=== PATIENT | male | born 1990 | race Caucasian/White ===

== ENCOUNTER 2016-08-03 09:13 | Emergency (ER) | payer OTHER ==
[2016-08-03 09:47] VITALS: BP 115/76; PULSE 82; TEMP 97.6; BMI 25.1
--- NOTE | 2016-08-03 10:53 | PDOC ---
History of Present Illness - General Chief Complaint: Cold Symptoms Stated Complaint: SORE THROAT Time Seen by Provider: 08/03/16 10:12 History Source: Patient Exam Limitations: No Limitations - History of Present Illness Initial Comments: 08/03/16 13:12 Chief complaint: Congestion, productive cough and subjective fever for one week History of present illness: Patient is a 26-year-old male with no significant medical history here today complaining of sore throat, nasal congestion, productive cough with greenish daily times one week. Patient also reports over the last few days. Patient denies any difficulty swallowing or breathing. Patient is afebrile presently. Patient denies any sick contacts. Patient did not have influenza vaccine. Timing/Duration: intermittent (for one week ) Severity: mild Associated Symptoms: reports: cough (productive greenish ), fever/chills, other (sore throat, nasal congestion ) Past History - Past Medical History Allergies/Adverse Reactions: Allergies Allergy/AdvReac Type Severity Reaction Status Date / Time No Known Allergies Allergy Verified 08/03/16 09:43 Home Medications: Ambulatory Orders Guaifenesin Dm [Mucinex Dm -] 1 tab PO BID PRN #10 tab.er.12h 08/03/16 Pseudoephedrine HCl [Sudafed -] 30 mg PO Q6H PRN #12 tablet 08/03/16 Other medical history: DENIES. - Psycho/Social/Smoking Cessation Hx Suicidal Ideation: No Smoking Status: No Smoking History: Never smoked Number of Cigarettes Smoked Daily: 0 Review of Systems - Review of Systems Able to Perform ROS?: Yes Constitutional: No: Symptoms Reported HEENTM: Yes: Nose Congestion, Throat Pain (less than prior ) Respiratory: Yes: Productive cough (greenish ). No: Shortness of Breath, SOB with Exertion, SOB at Rest, Stridor, Wheezing Cardiac (ROS): No: Symptoms Reported ABD/GI: No: Symptoms Reported : No: Symptoms Reported Musculoskeletal: No: Symptoms Reported Integumentary: No: Symptoms Reported Neurological: No: Symptoms reported *Physical Exam - Vital Signs Last Vital Signs Temp Pulse Resp BP Pulse Ox 97.6 F 82 19 115/76 97 08/03/16 09:43 08/03/16 09:43 08/03/16 09:43 08/03/16 09:43 08/03/16 09:43 - Physical Exam General Appearance: Yes: Appropriately Dressed HEENT: positive: TMs Normal, Pharyngeal Erythema, Nasal Congestion, Rhinorrhea ( clear ). negative: Tonsillar Exudate, Tonsillar Erythema Neck: negative: Lymphadenopathy (R), Lymphadenopathy (L) Respiratory/Chest: positive: Lungs Clear, Normal Breath Sounds. negative: Chest Tender, Respiratory Distress Cardiovascular: positive: Regular Rhythm, Regular Rate, S1, S2 Integumentary: positive: Normal Color Neurologic: positive: Alert, Normal Response, Responsive Medical Decision Making - Medical Decision Making 08/03/16 13:14 Patient is a 26-year-old male with no significant medical history here today complaining of sore throat, nasal congestion, productive cough with greenish daily times one week. Patient also reports over the last few days. Patient denies any difficulty swallowing or breathing. Patient is afebrile presently. Patient denies any sick contacts. Patient did not have influenza vaccine. Upper respiratory infection PLAN: sudafed 30 mg every 6 hrs prn nasal congestion Mucinex DM 1 tab q 12 hrs prn cough for 5 days 08/03/16 13:15 *DC/Admit/Observation/Transfer Diagnosis at time of Disposition: Upper respiratory infection, acute - Discharge Dispostion Disposition: HOME Condition at time of disposition: Stable - Prescriptions Prescriptions: Guaifenesin Dm [Mucinex Dm -] 1 tab PO BID PRN #10 tab.er.12h PRN Reason: Cough Pseudoephedrine HCl [Sudafed -] 30 mg PO Q6H PRN #12 tablet PRN Reason: Nasal Congestion - Patient Instructions Additional Instructions: Drink a lot of fluids and rest Follow up primary in a few days Return to emergency room if symptoms worsen any difficulty breathing or swallowing Patient voiced understanding of discharge instructions and all questions were answered
== END 2016-08-03 10:56 | disposition home or self-care (01) ==
LOC: JERFT 09:13
DX: J06.9 Acute upper respiratory infection, unspecified (principal)
CPT/HCPCS: 99281-25

== ENCOUNTER 2016-11-15 11:49 | Emergency (ER) | payer OTHER ==
[2016-11-15 11:54] VITALS: TEMP 98.4; BMI 25.0
[2016-11-15 13:59] LABS: BASOPHIL 0.7 % (0-2.0); EOSINOPHIL 1.7 % (0-4.5); MCH 30.6 pg (25.7-33.7); MCHC 33.9 g/dl (32.0-35.9); MEAN CELL VOLUME 90.3 fl (80-96); MEAN PLT VOLUME 9.7 fl (7.5-11.1); NEUTROPHILS 68.8 % (42.8-82.8); PLATELET COUNT 197 K/MM3 (134-434); RDW 13.7 % (11.9-15.9); WHITE BLOOD COUNT 6.4 K/mm3 (4.0-10.0)
[2016-11-15 14:05] LABS: URINE APPEARANCE CLEAR; URINE BILIRUBIN NEGATIVE (NEGATIVE); URINE BLOOD NEGATIVE (NEGATIVE); URINE COLOR YELLOW; URINE GLUCOSE (UA) NEGATIVE (NEGATIVE); URINE KETONE TRACE (NEGATIVE); URINE LEUK ESTERASE NEGATIVE (NEGATIVE); URINE NITRITE NEGATIVE (NEGATIVE); URINE PROTEIN NEGATIVE (NEGATIVE); URINE UROBILINOGEN NEGATIVE E.U./dl (0.2-1.0)
[2016-11-15 14:21] LABS: ALBUMIN 4.2 g/dl (3.4-5.0); ANION GAP 8 (8-16); CALCIUM 9.3 mg/dL (8.5-10.1); CO2 30 mmol/L (21-32); GLUCOSE,RANDOM 69 mg/dL (74-106); SGOT/AST 15 U/L (15-37); SGPT/ALT 22 U/L (12-78)
[2016-11-15 14:23] LABS: ALK PHOS 74 U/L (45-117); BILIRUBIN,TOTAL 0.5 mg/dL (0.2-1.0); TOT PROT 7.5 g/dl (6.4-8.2)
--- NOTE | 2016-11-15 14:51 | PDOC ---
History of Present Illness <Herberth Farmer - Last Filed: 11/15/16 14:58> - General History Source: Patient Exam Limitations: No Limitations - History of Present Illness Initial Comments: 11/15/16 15:21 The patient is a 26 year old male, with no significant past medical history who presents to the emergency department with right lower quadrant pain for about 2 weeks. He reports his pain is mostly positional and often made worse with heavy lifting. He reports about 3 months ago falling and landing on his right side, but denies any immediate pain since the injury. He also notes having right tesiticle swelling that started yesterday with assocaited pain that radiates from his right groin while lifting heavy objects. He also relates having pins and needles sensation that radiates down his RLE. He denies any lower back pain. He denies any recent fevers, chills, or headache. He denies any recent nausea, vomit, diarrhea or constipation. He denies any recent dysuria , frequency, urgency or hematuria. Allergies: NKA Past surgical history: None reported. Social History: Nonsmoker. Denies EtOH use and recreational drug use. 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 <Moises Craven - Last Filed: 11/15/16 15:22> - General Chief Complaint: Pain Stated Complaint: PAIN IN THE R LOWER QUADRANT Time Seen by Provider: 11/15/16 12:03 Past History - Past Medical History Other medical history: DENIES - Psycho/Social/Smoking Cessation Hx Anxiety: No Suicidal Ideation: No Smoking Status: No Smoking History: Never smoked Number of Cigarettes Smoked Daily: 0 Hx Alcohol Use: Yes (SOCIAL) Drug/Substance Use Hx: No Substance Use Type: None <Herberth Farmer - Last Filed: 11/15/16 14:58> <Moises Craven - Last Filed: 11/15/16 15:22> - Past Medical History Allergies/Adverse Reactions: Allergies Allergy/AdvReac Type Severity Reaction Status Date / Time No Known Allergies Allergy Verified 11/15/16 11:54 Home Medications: Ambulatory Orders NK [No Known Home Medication] 11/15/16 Review of Systems - Review of Systems Able to Perform ROS?: Yes Comments:: 11/15/16 15:21 CONSTITUTIONAL: No reported: Fever, Chills, Diaphoresis, Generalized Weakness, Malaise, Loss of Appetite HEENT: No reported: Rhinorrhea, Nasal Congestion, Throat Pain, Throat Swelling, Difficulty Swallowing, Mouth Swelling, Ear Pain, Eye Pain, Visual Changes CARDIOVASCULAR: No reported: Chest Pain, Syncope, Palpitations, Irregular Heart Rate, Lightheadedness, Peripheral Edema RESPIRATORY: No reported: Cough, Shortness of Breath, SOB with Exertion, Orthopnea, Wheezing , Stridor, Hemoptysis GASTROINTESTINAL: +Right lower quadrant pain/hip pain. No reported: Nausea, Vomiting, Diarrhea, Constipation, Melena, Hematochezia GENITOURINARY: No reported: Dysuria, Frequency, Urgency, Hesitancy, Flank Pain, Genital Pain MUSCULOSKELETAL: No reported: Myalgia, Arthralgia, Joint Swelling, Back pain, Neck Pain SKIN: No reported: Rash, Itching, Pallor HEMATOLOGIC/IMMUNOLOGIC: No reported: Easy Bleeding, Easy Bruising, Lymphadenopathy, Frequent infections ENDOCRINE: No reported: Unexplained Weight Gain, Unexplained Weight Loss, Heat Intolerance , Cold Intolerance NEUROLOGIC: No reported: Headache, Focal Weakness, Paresthesias, Unsteady Gait, Seizure, Mental Status Changes, Incontinence PSYCHIATRIC: No reported: Anxiety, Depression <Moises Craven - Last Filed: 11/15/16 15:22> *Physical Exam - Vital Signs Last Vital Signs Temp Pulse Resp BP Pulse Ox 98.4 F 74 20 137/70 97 11/15/16 11:51 11/15/16 11:51 11/15/16 11:51 11/15/16 11:51 11/15/16 11:51 <Herberth Farmer - Last Filed: 11/15/16 14:58> - Vital Signs Last Vital Signs Temp Pulse Resp BP Pulse Ox 98.4 F 74 20 137/70 97 11/15/16 11:51 11/15/16 11:51 11/15/16 11:51 11/15/16 11:51 11/15/16 11:51 - Physical Exam Comments: 11/15/16 15:22 GENERAL: The patient is awake, alert, and fully oriented, Nontoxic - in no acute distress. HEAD: Normocephalic, atraumatic. EYES: extraocular movements intact, sclera anicteric, conjunctiva clear. ENT: Normal voice, Moist mucous membranes. NECK: Normal range of motion, supple LUNGS: Breath sounds equal, clear to auscultation bilaterally. No wheezes, no rhonchi, no rales. : Normal Examination. No masses, tenderness, or edema. uncircumcised penis HEART: Regular rate and rhythm, without murmur, rub or gallop. ABDOMEN: Soft, nontender, normoactive bowel sounds. No guarding, no rebound.No CVA tenderness EXTREMITIES: Normal range of motion, no edema. No clubbing or cyanosis. No cords , erythema, or tenderness. NEUROLOGICAL: No facial asymmetry, Normal speech. PSYCH: Normal mood, normal affect. SKIN: Warm, Dry, normal turgor. <Moises Craven - Last Filed: 11/15/16 15:22> ED Treatment Course - LABORATORY CBC & Chemistry Diagram: 11/15/16 13:40 11/15/16 13:40 - ADDITIONAL ORDERS Additional order review: Laboratory Results 11/15/16 11/15/16 13:40 13:40 Sodium 143 Potassium 3.6 Chloride 105 Carbon Dioxide 30 Anion Gap 8 BUN 12 Creatinine 1.0 D Creat Clearance w eGFR > 60 Random Glucose 69 L D Calcium 9.3 Total Bilirubin 0.5 D AST 15 ALT 22 Alkaline Phosphatase 74 Total Protein 7.5 Albumin 4.2 Urine Color Yellow Urine Appearance Clear Urine pH 5.0 Urine Protein Negative Urine Glucose (UA) Negative Urine Ketones Trace H Urine Blood Negative Urine Nitrite Negative Urine Bilirubin Negative Urine Urobilinogen Negative Ur Leukocyte Esterase Negative 11/15/16 13:40 RBC 4.84 MCV 90.3 MCHC 33.9 RDW 13.7 MPV 9.7 Neutrophils % 68.8 Lymphocytes % 21.8 Monocytes % 7.0 Eosinophils % 1.7 D Basophils % 0.7 - RADIOLOGY Radiology Studies Ordered: Category Date Time Status SCROTUM AND CONTENTS US [US] Stat Ultrasound 11/15/16 12:25 Completed <Herberth Farmer - Last Filed: 11/15/16 14:58> - LABORATORY CBC & Chemistry Diagram: 11/15/16 13:40 11/15/16 13:40 - ADDITIONAL ORDERS Additional order review: Laboratory Results 11/15/16 11/15/16 13:40 13:40 Sodium 143 Potassium 3.6 Chloride 105 Carbon Dioxide 30 Anion Gap 8 BUN 12 Creatinine 1.0 D Creat Clearance w eGFR > 60 Random Glucose 69 L D Calcium 9.3 Total Bilirubin 0.5 D AST 15 ALT 22 Alkaline Phosphatase 74 Total Protein 7.5 Albumin 4.2 Urine Color Yellow Urine Appearance Clear Urine pH 5.0 Urine Protein Negative Urine Glucose (UA) Negative Urine Ketones Trace H Urine Blood Negative Urine Nitrite Negative Urine Bilirubin Negative Urine Urobilinogen Negative Ur Leukocyte Esterase Negative 11/15/16 13:40 RBC 4.84 MCV 90.3 MCHC 33.9 RDW 13.7 MPV 9.7 Neutrophils % 68.8 Lymphocytes % 21.8 Monocytes % 7.0 Eosinophils % 1.7 D Basophils % 0.7 <Moises Craven - Last Filed: 11/15/16 15:22> Medical Decision Making - Medical Decision Making 11/15/16 14:49 26y M presenting with 2 weeks of intermittent RLQ,pain worse when he is lifting w/o fever/chills, n/v, diarrhea, dysuria. pt does note the pt radiates down to his groin occasionally. on exam pt is well apeparing NAD, no focal tenderness, normal testicular exam likely msk as it is worse with heavy lifting, exa otherwise unremarkable labs unremraakble UA shows trace ktones - no signs of dka/hyperglycemia, likely due to starvation as pt has not eaten no blood to suggest kidney stone US negative for torsion abd was reasssed and there is no tenderness do not suspect appendicits return precautions were discussed will [facility] pt with pmd fu I discussed the physical exam findings, ancillary test results and final diagnoses with the patient. I answered all of the patient's questions. The patient was satisfied with the care received and felt comfortable with the discharge plan and treatment plan. The patient will call their primary care physician within 24 hours to arrange follow-up and will return to the Emergency Department with any new, persistent or worsening symptoms. A portion of this note was documented by scribe services under my direction. I have reviewed the details of the note, within reason, and agree with the documentation with the following case summary and management plan written by me <Herberth Farmer - Last Filed: 11/15/16 14:58> *DC/Admit/Observation/Transfer - Discharge Dispostion Admit: No <Herberth Farmer - Last Filed: 11/15/16 14:58> - Attestations Scribe Attestion: 11/15/16 15:22 Documentation prepared by Moises Craven, acting as medical sales associate for Herberth Farmer MD. <Moises Craven - Last Filed: 11/15/16 15:22> Diagnosis at time of Disposition: Hip pain Qualifiers: Laterality: right Qualified Code(s): M25.551 - Pain in right hip - Discharge Dispostion Disposition: HOME Condition at time of disposition: Improved - Referrals Referrals: [facility] [Provider Group] - Patient Instructions Printed Discharge Instructions: DI for Abdominal Pain-Adult Additional Instructions: Vuelva al departamento de urgencias de inmediato con cualquier nuevo, persistente o empeorando los sntomas, incluyendo dolor abdominal empeorando, fiebres, incapacidad para tolerar la ingesta oral, dolor en el pecho, dificultad para respirar o cualquier otra preocupacin. Mantngase sandor hidratado. Debe llamar y seguir con jerry mdico maana. Jerry visita al departamento de emergencias no est completa sin un seguimiento con jerry mdico para jerry reevaluaci n. Por favor, asegrese de que jerry mdico revise los resultados de jerry evaluaci n de emergencia. Return to the emergency department immediately with ANY new, persistent or worsening symptoms including worsening abdominal pain, fevers, inability to tolerate oral intake, chest pain, shortness of breath or any other concerns. Stay well hydrated. You MUST call and follow up with your doctor tomorrow. Your emergency department visit is not complete without a followup with your doctor for reevaluation. Please make sure your doctor reviews the results of your emergency evaluation. Print Language: TANZANIAN
[2016-11-15 15:25] VITALS: BP 132/72; PULSE 55
== END 2016-11-15 15:24 | disposition home or self-care (01) ==
LOC: JER 11:49
DX: M25.551 Pain in right hip (principal)
CPT/HCPCS: 36415; 76870-TC; 80053; 81003; 85025; 99282-25

== ENCOUNTER 2017-08-02 11:07 | Emergency (ER) | payer SELFPAY ==
[2017-08-02 11:19] VITALS: BP 131/69; PULSE 74; TEMP 98.6; BMI 22.7
--- NOTE | 2017-08-02 11:40 | PDOC ---
History of Present Illness - General Chief Complaint: Sore Throat Stated Complaint: NECK PROBLEM Time Seen by Provider: 08/02/17 11:33 History Source: Patient Exam Limitations: No Limitations - History of Present Illness Initial Comments: 08/02/17 12:09 Patient is a 27-year-old male with no past medical history who presents emergency department today with 2 days of neck swelling. Patient states that he has a bump on the right side of his neck. It is painful. Denies fevers, chills, sore throat, cough, nausea, vomiting and diarrhea. Patient states this has happened before in the swelling usually goes away on its own. Past History - Travel Traveled outside of the country in the last 30 days: No Close contact w/someone who was outside of country & ill: No - Past Medical History Allergies/Adverse Reactions: Allergies Allergy/AdvReac Type Severity Reaction Status Date / Time No Known Allergies Allergy Verified 08/02/17 11:15 Home Medications: Ambulatory Orders Amoxicillin - [Amoxicillin 500mg Capsule -] 500 mg PO BID #14 capsule 08/02/17 COPD: No - Immunization History Immunization Up to Date: Yes - Suicide/Smoking/Psychosocial Hx Smoking Status: No Smoking History: Never smoked Number of Cigarettes Smoked Daily: 0 Hx Alcohol Use: No Drug/Substance Use Hx: No Substance Use Type: None Review of Systems - Review of Systems Able to Perform ROS?: Yes Comments:: 08/02/17 11:40 CONSTITUTIONAL: Absent: fever, chills, diaphoresis, generalized weakness, malaise, loss of appetite HEENT: Absent: rhinorrhea, nasal congestion, throat pain, throat swelling, difficulty swallowing, mouth swelling, ear pain, eye pain, visual Changes CARDIOVASCULAR: Absent: chest pain, loss of consciousness, palpitations, irregular heart rate, peripheral edema RESPIRATORY: Absent: cough, shortness of breath, dyspnea with exertion, orthopnea, wheezing, stridor, hemoptysis GASTROINTESTINAL: Absent: abdominal pain, abdominal distension, nausea, vomiting, diarrhea, constipation, melena, hematochezia SKIN: Absent: rash, itching, pallor HEMATOLOGIC/IMMUNOLOGIC: Present: R neck LAD. Absent: easy bleeding, easy bruising, frequent infections ENDOCRINE: Absent: unexplained weight gain, unexplained weight loss, heat intolerance, cold intolerance NEUROLOGIC: Absent: headache, focal weakness or paresthesias, dizziness, unsteady gait, seizure, mental status changes, bladder or bowel incontinence Is the patient limited Montserratian proficient: No *Physical Exam - Vital Signs Last Vital Signs Temp Pulse Resp BP Pulse Ox 98.6 F 74 18 131/69 96 08/02/17 11:16 08/02/17 11:16 08/02/17 11:16 08/02/17 11:16 08/02/17 11:16 - Physical Exam Comments: 08/02/17 11:40 GENERAL: Well developed, well nourished. Awake and alert. No acute distress. HEENT: Normocephalic, atraumatic. PERRLA, EOMI. No conjunctival pallor. Sclera are non- icteric. Moist mucous membranes. Oropharynx is clear. NECK: 3cm R mobile anterior cervical node just under the angle of the mandible. Tender to touch. Supple. Full ROM. No JVD. Carotid pulses 2+ and symmetric, without bruits. No thyromegaly. CARDIOVASCULAR: Regular rate and rhythm. No murmurs, rubs, or gallops. Distal pulses are 2+ and symmetric. PULMONARY: No evidence of respiratory distress. Lungs clear to auscultation bilaterally. No wheezing, rales or rhonchi. SKIN: Warm and dry. Normal capillary refill. No rashes. No jaundice. NEUROLOGICAL: Alert, awake, appropriate. Cranial nerves 2-12 intact. No deficits to light touch and temperature in face, upper extremities and lower extremities. No motor deficits in the in face, upper extremities and lower extremities. Normoreflexic in the upper and lower extremities. Normal speech. Toes are down- going bilaterally. Gait is normal without ataxia. PSYCHIATRIC: Cooperative. Good eye contact. Appropriate mood and affect. ED Treatment Course - LABORATORY CBC & Chemistry Diagram: 08/02/17 12:00 08/02/17 12:00 Medical Decision Making - Medical Decision Making 08/02/17 12:12 Patient is a 27-year-old male with no past medical history who presents to the ER with 2 days of swollen lymph node on the right. Patient is currently afebrile , vital signs stable. Tender to touch. Will rule out strep at this time and we' ll obtain basic labs. Motrin for pain. Reevaluate. 08/02/17 12:46 Lab work is unremarkable at this time. Strep test is negative. However given the size of the lymph node we will treat empirically for strep. Amoxicillin prescribed. Follow up for primary care doctor given. Instructed patient to make appointment with the doctor for further follow-up. Patient understands all discharge instructions and all questions were answered. Return precautions given. *DC/Admit/Observation/Transfer Diagnosis at time of Disposition: Lymphadenopathy - Discharge Dispostion Disposition: HOME Condition at time of disposition: Stable Admit: No - Referrals Referrals: Skyler Sinha MD [Staff Physician] - Basilio Bullock MD [Staff Physician] - - Patient Instructions Printed Discharge Instructions: DI for Lymphadenopathy Additional Instructions: Your blood work today was normal. Your strep test was negative. However given the swollen glands on your neck your prescribed amoxicillin. Please take the medication twice a day for the next 7 days. You may use warm compresses on the area to help with pain. He may also take Motrin 800 mg every 8 hours to help with pain and swelling. A referral for a primary care doctor was given to you please follow-up with them within the next 1-2 days. Return to the emergency department if the swelling gets worse, if you have difficulty swallowing, if you develop fevers, or if you have any changes in your symptoms. Tu anlisis de sean hoy fue normal. Tu prueba de estreptococo fue negativa. Sin embargo, dado las glndulas hinchadas en jerry cassandra jerry amoxicilina prescrita. Por favor tome el medicamento dos veces al da cristopher los prximos 7 sanchez. Puede usar compresas tibias en el polly para ayudar con el dolor. Tambi n puede jordon Motrin 800 mg cada 8 horas para aliviar el dolor y la hinchazn. Se le proporcion manisha referencia para un mdico de atencin primaria por favor harish seguimiento con ellos dentro de los prximos 1 a 2 sanchez. Regrese al departamento de emergencias si la inflamacin empeora, si tiene dificultades para tragar, si tiene fiebre o si tiene algn cambio en cesar sntomas. Print Language: FRENCH - Post Discharge Activity Forms/Work/School Notes: Back to Work
[2017-08-02] MEDS ORDERED: IBUPROFEN 400 MG TABLET (FP) PO ONE ×2 (11:55→12:08)
[2017-08-02 12:14] LABS: EOS % 0.7 % (0-4.5); HEMATOCRIT 44.1 % (35.4-49); HEMOGLOBIN 15.2 GM/dL (11.7-16.9); LYMPH % 14.5 % (8-40); MCH 30.9 pg (25.7-33.7); MCHC 34.5 g/dl (32.0-35.9); MEAN CELL VOLUME 89.6 fl (80-96); MEAN PLT VOLUME 9.2 fl (7.5-11.1); NEUT % 73.8 % (42.8-82.8); PLATELET COUNT 188 K/MM3 (134-434); RBC 4.92 M/mm3 (4.00-5.60); RDW 13.2 % (11.9-15.9); WHITE BLOOD COUNT 5.8 K/mm3 (4.0-10.0)
[2017-08-02 12:40] LABS: ALBUMIN 4.1 g/dl (3.4-5.0); ANION GAP 8 (8-16); BILIRUBIN,TOTAL 0.6 mg/dL (0.2-1.0); BLOOD UREA NITROGEN 13 mg/dL (7-18); CALCIUM 9.3 mg/dL (8.5-10.1); CHLORIDE 104 mmol/L (98-107); CO2 29 mmol/L (21-32); CREATININE 0.9 mg/dL (0.7-1.3); GLUCOSE,RANDOM 104 mg/dL (74-106); POTASSIUM 3.8 mmol/L (3.5-5.1); SGOT/AST 17 U/L (15-37); SGPT/ALT 23 U/L (12-78); SODIUM 141 mmol/L (136-145); TOT PROT 7.4 g/dl (6.4-8.2)
[2017-08-02 12:41] LABS: ALK PHOS 80 U/L (45-117)
== END 2017-08-02 12:56 | disposition home or self-care (01) ==
LOC: JERFT 11:07
DX: R59.1 Generalized enlarged lymph nodes (principal)
CPT/HCPCS: 36415; 80053; 85025; 87070; 87430; 99281-25

== ENCOUNTER 2018-04-08 18:07 | Emergency (ER) | payer OTHER ==
[2018-04-08 18:47] VITALS: BP 134/70; PULSE 64; TEMP 98.5; BMI 25.8
--- NOTE | 2018-04-08 18:47 | PDOC ---
Rapid Medical Evaluation Chief Complaint: Back Pain Time Seen by Provider: 04/08/18 18:44 Medical Evaluation: Allergies Allergy/AdvReac Type Severity Reaction Status Date / Time No Known Allergies Allergy Verified 04/08/18 18:43 04/08/18 18:45 I have performed a brief in-person evaluation of this patient. The patient presents with a chief complaint of: c/o right low abd to back pain x 1 week. 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 No fevers/ No px with bowels/ bladder Pertinent physical exam findings: abd soft/ no guarding, rebound I have ordered the following: nothing The patient will proceed to the ED for further evaluation.
--- NOTE | 2018-04-08 18:57 | PDOC ---
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 Pt states he felt a pulling to his right lower back and his right side abdomen when lifting heavy materials. Pt states pain radiates to his right buttock and posterior thigh worse with walking and raising left leg. no urine or bowel dysfunction. 04/08/18 19:16 Occurred: reports: last week Severity: reports: moderate Pain Location: reports: back Past History - Past Medical History Allergies/Adverse Reactions: Allergies Allergy/AdvReac Type Severity Reaction Status Date / Time No Known Allergies Allergy Verified 04/08/18 18:43 Home Medications: Ambulatory Orders Cyclobenzaprine HCl [Flexeril -] 10 mg PO TID PRN #15 tablet 04/08/18 Naproxen [Naprosyn -] 500 mg PO BID #14 tablet 04/08/18 COPD: No - Immunization History Immunization Up to Date: Yes - Suicide/Smoking/Psychosocial Hx Smoking Status: No Smoking History: Never smoked Number of Cigarettes Smoked Daily: 0 Hx Alcohol Use: No Drug/Substance Use Hx: No Substance Use Type: None Review of Systems - Review of Systems Able to Perform ROS?: Yes Is the patient limited Icelandic proficient: No Constitutional: No: Symptoms Reported HEENTM: No: Symptoms Reported Respiratory: No: Symptoms reported Cardiac (ROS): No: Symptoms Reported ABD/GI: No: Symptoms Reported : No: Symptoms Reported Musculoskeletal: Yes: Symptoms Reported Integumentary: No: Symptoms Reported *Physical Exam - Vital Signs Last Vital Signs Temp Pulse Resp BP Pulse Ox 98.5 F 64 16 134/70 99 04/08/18 18:44 04/08/18 18:44 04/08/18 18:44 04/08/18 18:44 04/08/18 18:44 - Physical Exam General Appearance: Yes: Nourished, Appropriately Dressed HEENT: positive: EOMI, JANKI Neck: positive: Supple. negative: Tender Respiratory/Chest: positive: Lungs Clear, Normal Breath Sounds. negative: Chest Tender Cardiovascular: positive: Regular Rhythm, Regular Rate Gastrointestinal/Abdominal: positive: Normal Bowel Sounds, Soft. negative: Tender, Distended, Guarding, Rebound, Tenderness, Hernia, Mass Male Genitalia: positive: normal genitalia. negative: discharge, testicular tenderness, testicular mass, epididymus tender, hernia Lymphatic: negative: Adenopathy Musculoskeletal: positive: Normal Inspection, Other (pos SLR right at 45 degrees , tender to deep palpation right buttock ). negative: CVA Tenderness, CVA Tenderness (R), CVA Tenderness (L), Decreased Range of Motion, Muscle Spasm, Vertebral Tenderness Extremity: positive: Normal Capillary Refill, Normal Inspection, Normal Range of Motion. 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 NML intact, Fully Oriented, Alert, Normal Mood/ Affect, Normal Response, Motor Strength 09/29 Medical Decision Making - Medical Decision Making 04/08/18 19:17 cc: right sided back to buttock pain radiates to the thigh and butt no urine or bowel dysfunction, neg saddle anesthesia no abd pain neg nvd, pt has no RLQ tenderness positive SLR will give toradol now 04/08/18 19:34 pt ambulatory steady gait given dc inst to follow up with the neurosurgeon , return to ER for any worsening pain *DC/Admit/Observation/Transfer Diagnosis at time of Disposition: Sciatica Qualifiers: Laterality: right Qualified Code(s): M54.31 - Sciatica, right side - Discharge Dispostion Disposition: HOME Condition at time of disposition: Good - Prescriptions Prescriptions: Cyclobenzaprine HCl [Flexeril -] 10 mg PO TID PRN #15 tablet PRN Reason: Muscle Spasms Naproxen [Naprosyn -] 500 mg PO BID #14 tablet - Referrals - Patient Instructions Printed Discharge Instructions: DI for Back Pain With Sciatica Additional Instructions: take the medication as prescribed DO NOT WORK AND TAKE FLEXERIL IT CAN MAKE YOU DROWSY follow with the back doctor if pain does not improve or worsens - Post Discharge Activity
[2018-04-08] MEDS ORDERED: KETOROLAC TROMETHAMINE 60 MG/2 ML VIAL IM ONE (19:07)
[2018-04-08] MEDS ORDERED: KETOROLAC TROMETHAMINE 60 MG/2 ML VIAL ONE (19:10)
== END 2018-04-08 19:45 | disposition home or self-care (01) ==
LOC: JERFT 18:07
PROC: 3E0233Z Introduction of Anti-inflammatory into Muscle, Percutaneous Approach (ICD-10-PCS; principal; 2018-04-08)
DX: M54.41 Lumbago with sciatica, right side (principal); X50.0XXA Overexertion from strenuous movement or load, initial encounter; Y93.H3 Activity, building and construction; Y92.61 Building [any] under construction as the place of occurrence of the external cause
CPT/HCPCS: 96372; 99281-25

== ENCOUNTER 2018-05-16 18:59 | Emergency (ER) | payer OTHER ==
[2018-05-16 19:39] VITALS: BP 142/71; PULSE 68; TEMP 98.2; BMI 25.9
--- NOTE | 2018-05-16 19:39 | PDOC ---
Rapid Medical Evaluation Chief Complaint: Pain Medical Evaluation: Allergies Allergy/AdvReac Type Severity Reaction Status Date / Time No Known Allergies Allergy Verified 05/16/18 19:35 I have performed a brief in-person evaluation of this patient. The patient presents with a chief complaint of: Concern for swelling along R occiput after having mechanical fall around 1 week ago (slipped at work and fell backwards). Denies LOC, n/v, visual changes, numbness/tingling/weakness of extremities. Has no CROSS or neck pain but states it hurts when he presses back of head Pertinent physical exam findings: Minimal swelling to R parietal region of head ; no laceration or open wound; no gross focal deficits The patient will proceed to the ED for further evaluation. 05/16/18 19:36
--- NOTE | 2018-05-16 20:01 | PDOC ---
History of Present Illness - General Chief Complaint: Pain Stated Complaint: HEAD PAIN Time Seen by Provider: 05/16/18 19:39 History Source: Patient Exam Limitations: No Limitations - History of Present Illness Initial Comments: Patient is a 28 YO male who states that he hit the right occipital region of his head while at work approximately 2 weeks ago. There was no loss of consciousness. Patient admits to mild tenderness in this area. Patient denies laceration. Patient denies headache or visual disturbances. He states his pain is 2/10. Patient denies aggravating or relieving factors. 05/16/18 19:58 Past History - Travel Traveled outside of the country in the last 30 days: No Close contact w/someone who was outside of country & ill: No - Past Medical History Allergies/Adverse Reactions: Allergies Allergy/AdvReac Type Severity Reaction Status Date / Time No Known Allergies Allergy Verified 05/16/18 19:35 Home Medications: Ambulatory Orders NK [No Known Home Medication] 05/16/18 COPD: No - Immunization History Immunization Up to Date: Yes - Suicide/Smoking/Psychosocial Hx Smoking Status: No Smoking History: Never smoked Have you smoked in the past 12 months: No Number of Cigarettes Smoked Daily: 0 Information on smoking cessation initiated: No Hx Alcohol Use: No Drug/Substance Use Hx: No Substance Use Type: None Review of Systems - Review of Systems Able to Perform ROS?: Yes HEENTM: No: Blurred Vision, Double Vision All Other Systems: Reviewed and Negative *Physical Exam - Vital Signs Last Vital Signs Temp Pulse Resp BP Pulse Ox 98.2 F 68 18 142/71 98 05/16/18 19:36 05/16/18 19:36 05/16/18 19:36 05/16/18 19:36 05/16/18 19:36 - Physical Exam Comments: Constitutional: VS stated, pt appears in no apparent distress; sitting in chair. Skin: Warm and dry. Intact, no lesions or excoriations. Head: Normocephalic; atraumatic Eyes: Extraocular movements intact, PERRL, conjunctiva pink without injection or discharge. Lids normal; no periorbital edema or erythema. Vision subjectively normal or at baseline. Ears: No tenderness present. Canals without injection or discharge; TM clear, no retractions or bulging. Nose: Patent, mucosa pink. No drainage.Throat: Oropharynx with pink and moist mucosa. Dentition good. No pharyngeal edema; erythema or exudate. Tongue normal , no fasciculations. Airway Patent. Hypoglossal area is soft. Uvula is midline. No trismus. Neck: Supple, non-tender, with full ROM, trachea midline, no anterior/posterior cervical chain lymphadenopathy, thyroid nonpalpable. No stridor or bruits. Lungs: Bilateral breath sounds clear upon auscultation. No adventitious breath sounds. Heart: Regular rate and rhythm, S1/S2 auscultated. No murmurs, rubs, or gallops. No visible pulsations, heaves, or lifts on precordium. Musculoskeletal: Moves all extremities without difficulty. Neurologic: Awake, alert. Conversation fluent. Normal attention. Oriented to person, place, and time. Cranial nerves 1-12 intact. Gross sensory and motor strength intact; cerebellar function normal. Steady gait noted, deep tendon reflexes within normal range. 05/16/18 19:59 Moderate Sedation - Procedure Monitoring Vital Signs: Procedure Monitoring Vital Signs Temperature 98.2 F 05/16/18 19:36 Pulse Rate 68 05/16/18 19:36 Respiratory Rate 18 05/16/18 19:36 Blood Pressure 142/71 05/16/18 19:36 O2 Sat by Pulse Oximetry (%) 98 05/16/18 19:36 Medical Decision Making - Medical Decision Making 05/16/18 20:00 Pt has no red flag signs warranting a head CT. Pt has not lac *DC/Admit/Observation/Transfer Diagnosis at time of Disposition: Head injury Qualifiers: Encounter type: initial encounter Qualified Code(s): S09.90XA - Unspecified injury of head, initial encounter - Discharge Dispostion Disposition: HOME Condition at time of disposition: Stable Decision to Admit order: No - Referrals - Patient Instructions Additional Instructions: Ibuprofen 600 mg every 6 hours for pain. F/U with your PCP - Post Discharge Activity
== END 2018-05-16 20:04 | disposition home or self-care (01) ==
LOC: JERFT 18:59
DX: S09.8XXA Other specified injuries of head, initial encounter (principal); W01.0XXA Fall on same level from slipping, tripping and stumbling without subsequent striking against object, initial encounter; Y93.89 Activity, other specified; Y92.89 Other specified places as the place of occurrence of the external cause; Y99.0 Civilian activity done for income or pay
CPT/HCPCS: 99281-25

== ENCOUNTER 2018-07-06 13:45 | Emergency (ER) | payer OTHER ==
[2018-07-06 13:50] VITALS: BMI 25.8
--- NOTE | 2018-07-06 15:03 | PDOC ---
History of Present Illness <Romelia Lazo - Last Filed: 07/06/18 15:03> - General History Source: Patient Exam Limitations: No Limitations - History of Present Illness Initial Comments: 07/06/18 16:56 The patient is a 28 year old male with no significant PMH who presents to the emergency department with right lower quadrant pain for the past week. Patient reports the right lower quadrant pain worsens with heavy lifting at work. Patient has also noticed the right lower quadrant pain radiates to the right lower back but denies any associated symptoms. Patient denies similar symptoms in the past. Patient has also been complaining of intermittent right testicular swelling and pain. The patient denies chest pain, shortness of breath, headache and dizziness. Denies fever, chills, nausea, vomit, diarrhea and constipation. Denies dysuria, frequency, urgency and hematuria. Allergies: NKA Past surgical history: None reported. Social history: No reported alcohol, drug or cigarette use. <Cindy Brown - Last Filed: 07/06/18 16:59> - General Chief Complaint: Pain Stated Complaint: RIGHT LOWER ABD PAIN Time Seen by Provider: 07/06/18 14:37 Past History - Past Medical History Cancer: No COPD: No GI Disorders: No Disorders: No - Surgical History Cholecystectomy: No Gastric Stapling: No GI Surgery: No - Immunization History Immunization Up to Date: Yes - Suicide/Smoking/Psychosocial Hx Smoking Status: No Smoking History: Never smoked Have you smoked in the past 12 months: No Number of Cigarettes Smoked Daily: 0 Information on smoking cessation initiated: No Hx Alcohol Use: Yes ("social") Drug/Substance Use Hx: No Substance Use Type: None <Romelia Lazo - Last Filed: 07/06/18 15:03> <Cindy Brown - Last Filed: 07/06/18 16:59> - Past Medical History Allergies/Adverse Reactions: Allergies Allergy/AdvReac Type Severity Reaction Status Date / Time No Known Allergies Allergy Verified 05/16/18 19:35 Home Medications: Ambulatory Orders NK [No Known Home Medication] 05/16/18 Review of Systems - Review of Systems Able to Perform ROS?: Yes Comments:: 07/06/18 16:57 ADULT ROS GENERAL/CONSTITUTIONAL: No fever or chills. No weakness. HEAD, EYES, EARS, NOSE AND THROAT: No change in vision. No ear pain or discharge. No sore throat. CARDIOVASCULAR: No chest pain or shortness of breath. RESPIRATORY: No cough, wheezing, or hemoptysis. GASTROINTESTINAL: No nausea, vomiting, diarrhea or constipation. (+) right lower quadrant pain. GENITOURINARY: No dysuria, frequency, or change in urination. (+) Right testicular pain and swelling. MUSCULOSKELETAL: No joint or muscle swelling or pain. No neck or back pain. SKIN: No rash NEUROLOGIC: No headache, vertigo, loss of consciousness, or change in strength/ sensation. ENDOCRINE: No increased thirst. No abnormal weight change. HEMATOLOGIC/LYMPHATIC: No anemia, easy bleeding, or history of blood clots. ALLERGIC/IMMUNOLOGIC: No hives or skin allergy. <Cindy Brown - Last Filed: 07/06/18 16:59> *Physical Exam - Vital Signs Last Vital Signs Temp Pulse Resp BP Pulse Ox 97.4 F L 66 20 129/73 100 07/06/18 13:47 07/06/18 13:47 07/06/18 13:47 07/06/18 13:47 07/06/18 13:47 <Romelia Lazo - Last Filed: 07/06/18 15:03> - Vital Signs Last Vital Signs Temp Pulse Resp BP Pulse Ox 97.4 F L 66 20 129/73 100 07/06/18 13:47 07/06/18 13:47 07/06/18 13:47 07/06/18 13:47 07/06/18 13:47 <Cindy Brown - Last Filed: 07/06/18 16:59> Moderate Sedation - Procedure Monitoring Vital Signs: Procedure Monitoring Vital Signs Temperature 97.4 F L 07/06/18 13:47 Pulse Rate 66 07/06/18 13:47 Respiratory Rate 20 07/06/18 13:47 Blood Pressure 129/73 07/06/18 13:47 O2 Sat by Pulse Oximetry (%) 100 07/06/18 13:47 <Romelia Lazo - Last Filed: 07/06/18 15:03> - Procedure Monitoring Vital Signs: Procedure Monitoring Vital Signs Temperature 97.4 F L 07/06/18 13:47 Pulse Rate 66 07/06/18 13:47 Respiratory Rate 20 07/06/18 13:47 Blood Pressure 129/73 07/06/18 13:47 O2 Sat by Pulse Oximetry (%) 100 07/06/18 13:47 <Cindy Brown - Last Filed: 07/06/18 16:59> ED Treatment Course - ADDITIONAL ORDERS Additional order review: Laboratory Results 07/06/18 15:33 Urine Color Yellow Urine Appearance Clear Urine pH 5.0 Ur Specific [place] 1.030 Urine Protein Negative Urine Glucose (UA) Negative Urine Ketones Negative Urine Blood Negative Urine Nitrite Negative Urine Bilirubin Negative Urine Urobilinogen Negative Ur Leukocyte Esterase Negative <Cindy Brown - Last Filed: 07/06/18 16:59>
[2018-07-06 15:37] LABS: URINE APPEARANCE CLEAR; URINE BILIRUBIN NEGATIVE (<2.0 mg/dL); URINE COLOR YELLOW; URINE GLUCOSE (UA) NEGATIVE (NEGATIVE); URINE KETONE NEGATIVE (NEGATIVE); URINE LEUK ESTERASE NEGATIVE (NEGATIVE); URINE NITRITE NEGATIVE (NEGATIVE); URINE PROTEIN NEGATIVE (NEGATIVE); URINE UROBILINOGEN NEGATIVE mg/dL (0.2-1.0)
--- NOTE | 2018-07-06 16:59 | PDOC ---
*Physical Exam - Vital Signs Last Vital Signs Temp Pulse Resp BP Pulse Ox 97.4 F L 66 20 129/73 100 07/06/18 13:47 07/06/18 13:47 07/06/18 13:47 07/06/18 13:47 07/06/18 13:47 ED Treatment Course - ADDITIONAL ORDERS Additional order review: Laboratory Results 07/06/18 15:33 Urine Color Yellow Urine Appearance Clear Urine pH 5.0 Ur Specific [place] 1.030 Urine Protein Negative Urine Glucose (UA) Negative Urine Ketones Negative Urine Blood Negative Urine Nitrite Negative Urine Bilirubin Negative Urine Urobilinogen Negative Ur Leukocyte Esterase Negative Medical Decision Making - Medical Decision Making 07/06/18 16:58 28y M no pmhx presents with intermittent R hip pain and R buttock pain, associated with heavy lifting/movement. 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 Notes that the buttock pain has been going on for approximately 1 year his right hip pain has been going on about a week. He denies any recent trauma or injuries. The patient is UA is negative the patient's ultrasound is negative, awaiting CT of the abdomen 07/06/18 18:[address] of abdomen is negative for acute pathology there was a solitary pulmonary calcification noted I discussed this with the patient and the importance of following up with a primary care doctor to reevaluate this in the future. I suspect that the patient's symptoms are muscular, will recommend supportive care, including NSAIDs and heat and rest. I discussed the physical exam findings, ancillary test results and final diagnoses with the patient. I answered all of the patient's questions. The patient was satisfied with the care received and felt comfortable with the discharge plan and treatment plan. The patient will call their primary care physician within 24 hours to arrange follow-up and will return to the Emergency Department with any new, persistent or worsening symptoms. *DC/Admit/Observation/Transfer Diagnosis at time of Disposition: Muscular pain - Discharge Dispostion Disposition: HOME Condition at time of disposition: Improved Decision to Admit order: No - Referrals Referrals: [facility] [place] [Provider Group] - Patient Instructions Printed Discharge Instructions: DI for Muscle Strain Additional Instructions: Regrese al departamento de emergencias inmediatamente con CUALQUIER sntoma nuevo, persistente o que empeore, incluyendo entumecimiento, hormigueo, debilidad, fiebre o cualquier otra inquietud. Si ve manisha masa / bulto en la demetria cuando est haciendo un trabajo pesado, puede ser manisha hernia. Si es muy doloroso y no desaparece o tiene vmitos, regrese inmediatamente al Departamento de Emergencias. [place] ibuprofeno (400 mg) / tylenol (650 mg) cada 6 horas cristopher 2 sanchez. Aplica calor a tus msculos adoloridos. Haba un ndulo en tu pulmn derecho. Por favor harish un seguimiento con jerry mdico para manisha reevaluacin en 3 meses. DEBE llamar y hacer un seguimiento con jerry mdico en 3 a 4 sanchez para manisha evaluacin adicional de cesar sntomas. Jerry visita al departamento de emergencias no est completa sin un seguimiento con jerry mdico para jerry reevaluacin. Los resultados se analizaron con usted. Asegrese de que jerry mdico revise los resultados de jerry evaluacin de emergencia. Return to the emergency department immediately with ANY new, persistent or worsening symptoms including numbness, tingling, weakness, fevers or any other concerns. If you see a mass/bump in your groin when you are doing heavy lifting, it may be a hernia. If it is very painful and doesnt go away or you have vomiting, return to the Emergency Department immediately. Take ibuprofen (400mg)/tylenol(650mg) every 6 hours for 2 days. Apply heat to your sore muscles. There was a nodule in your right lung. Please follow up with your doctor for reevaluation in 3 months. You MUST call and follow up with your doctor in 3-4 days for further evaluation of your symptoms. Your emergency department visit is not complete without a followup with your doctor for reevaluation.. Results were discussed with you. Please make sure your doctor reviews the results of your emergency evaluation. Print Language: KYRGYZ - Post Discharge Activity
[2018-07-06 17:47] VITALS: BP 122/68; PULSE 69; TEMP 98.3
[2018-07-06] MEDS ORDERED: IBUPROFEN 400 MG TABLET (FP) PO ONE ×2 (18:19→18:25)
== END 2018-07-06 18:29 | disposition home or self-care (01) ==
LOC: JER 13:45
DX: M54.5 Low back pain (principal); M25.551 Pain in right hip
CPT/HCPCS: 74176; 76870-TC; 81003; 99282-25

== ENCOUNTER 2018-11-25 18:39 | Emergency (ER) | payer OTHER ==
[2018-11-25 18:49] VITALS: BP 125/66; PULSE 78; TEMP 98.8; BMI 26.6
--- NOTE | 2018-11-25 18:49 | PDOC ---
Rapid Medical Evaluation Time Seen by Provider: 11/25/18 18:44 Medical Evaluation: Allergies Allergy/AdvReac Type Severity Reaction Status Date / Time No Known Allergies Allergy Verified 05/16/18 19:35 11/25/18 18:45 I have performed a brief in-person evaluation of this patient. The patient presents with a chief complaint of: headache x 6mos. had eval with CTHead that was clear. States has no pain , but feels has some pain. Denies neuro changes, no AMS. No fevers. Pertinent physical exam findings: A&Ox3 , no I have ordered the following: nothing The patient will proceed to the ED for further evaluation. Discharge Disposition - Diagnosis Hx of head injury - Referrals - Patient Instructions - Post Discharge Activity
[2018-11-25] MEDS ORDERED: ACETAMINOPHEN 325 MG TABLET (FP) PO ONE (19:20)
[2018-11-25] MEDS ORDERED: ACETAMINOPHEN 325 MG TABLET (FP) ONE (19:24)
--- NOTE | 2018-11-25 19:30 | PDOC ---
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) Exam Limitations: No Limitations - History of Present Illness Associated Symptoms: reports: denies symptoms, fatigue, fever/chills, loss of consciousness, nausea/vomiting, numbness in legs/feet, tingling in legs/feet, vision changes, weakness Past History - Travel Traveled outside of the country in the last 30 days: No Close contact w/someone who was outside of country & ill: No - Past Medical History Allergies/Adverse Reactions: Allergies Allergy/AdvReac Type Severity Reaction Status Date / Time No Known Allergies Allergy Verified 05/16/18 19:35 Home Medications: Ambulatory Orders NK [No Known Home Medication] 05/16/18 Cancer: No COPD: No GI Disorders: No Disorders: No - Surgical History Cholecystectomy: No Gastric Stapling: No GI Surgery: No - Immunization History Immunization Up to Date: Yes - Suicide/Smoking/Psychosocial Hx Smoking Status: No Smoking History: Never smoked Have you smoked in the past 12 months: No Number of Cigarettes Smoked Daily: 0 Hx Alcohol Use: Yes (OCCASIONALLY) Drug/Substance Use Hx: No Substance Use Type: None Review of Systems - Review of Systems Constitutional: No: Chills, Fever Cardiac (ROS): No: Chest Pain, Palpitations Neurological: Yes: Headache. No: Numbness, Paresthesia, Tingling, Weakness, Unsteady Gait, Dizziness *Physical Exam - Vital Signs Last Vital Signs Temp Pulse Resp BP Pulse Ox 98.8 F 78 16 125/66 97 11/25/18 18:44 11/25/18 18:44 11/25/18 18:44 11/25/18 18:44 11/25/18 18:44 - Physical Exam General Appearance: Yes: Nourished HEENT: positive: EOMI, JANKI, TMs Normal, Other (no palpable lump noted) Respiratory/Chest: positive: Lungs Clear, Normal Breath Sounds Cardiovascular: positive: Regular Rhythm, Regular Rate, S1, S2 Musculoskeletal: positive: Normal Inspection Extremity: positive: Normal Capillary Refill, Normal Inspection Integumentary: positive: Normal Color Neurologic: positive: 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 NML intact, Fully Oriented, Alert, Normal Mood/ Affect, Normal Response, Motor Strength 09/29 ED Treatment Course - RADIOLOGY Radiology Studies Ordered: Category Date Time Status HEAD CT WITHOUT CONTRAST [CT] Stat CT Scan 11/25/18 19:20 Ordered Medical Decision Making - Medical Decision Making 11/25/18 19:27 28y/o M with no prior med hx, s/p fall 6 months ago, fell on head, persistent pain in right parietal region subsequent CT was negative at the time pt reports he was in [employer] till 2 days ago when he started experiencing pain in the right middle scalp same place he fell, concern for a mass in the brain he denies dizziness,fever, chills, blurred vision or neck pain he has not taken any pain meds or f/u since ER discharge non focal neuro exam pt advised that a CT is not warranted given sx and exam pt insistent on getting a scan today head CT ordered Tylenol given f/u with neurology as outpt 11/25/18 19:37 11/25/18 19:37 11/25/18 19:55 pt s/o to [facility] to f/u CT scan *DC/Admit/Observation/Transfer Diagnosis at time of Disposition: Hx of head injury Headache Qualifiers: Headache type: unspecified Headache chronicity pattern: chronic headache Intractability: not intractable Qualified Code(s): R51 - Headache - Discharge Dispostion Disposition: HOME Condition at time of disposition: Stable - Referrals Referrals: Saqib Miller MD [Staff Physician] - Basilio Bullock MD [Staff Physician] - - Patient Instructions Additional Instructions: Your CT scan today was negative for any bleed or mass You are given a number for neurology and primary care please call to make appointment Return to the ER if worsening symptoms occur - Post Discharge Activity
== END 2018-11-25 20:05 | disposition home or self-care (01) ==
LOC: JERFT 18:39
DX: R51 Headache (principal); W19.XXXS Unspecified fall, sequela
CPT/HCPCS: 70450-TC; 99282-25

== ENCOUNTER 2022-03-17 17:00 | Emergency (ER) | payer OTHER ==
[2022-03-17 17:30] VITALS: PULSE 76; TEMP 98.1; BMI 31.3
[2022-03-17] MEDS ORDERED: FAMOTIDINE 20 MG/50 ML IVPB 20 MG/50 ML MG IVPB ONE ×2 (18:00→18:04)
[2022-03-17] MEDS ORDERED: KETOROLAC TROMETHAMINE 30 MG/1 ML VIAL IVPUSH ONE (18:00)
[2022-03-17] MEDS ORDERED: SODIUM CHLORIDE 0.9% 500 ML INFUS.BAG IV ONE (18:00)
[2022-03-17] MEDS ORDERED: KETOROLAC TROMETHAMINE 30 MG/1 ML VIAL ONE (18:04)
[2022-03-17 18:46] LABS: BASO % 0.6 % (0-2.0); EOS % 1.1 % (0-4.5); HEMATOCRIT 42.8 % (35.4-49); HEMOGLOBIN 14.7 GM/dL (11.7-16.9); LYMPH % 23.2 % (8-40); MCH 31.2 pg (25.7-33.7); MCHC 34.4 g/dl (32.0-35.9); MEAN CELL VOLUME 90.7 fl (80-96); MONO % 8.6 % (3.8-10.2); NEUT % 66.5 % (42.8-82.8); PLATELET COUNT 220 10^3/uL (134-434); RBC 4.72 M/mm3 (4.00-5.60); WHITE BLOOD COUNT 7.7 K/mm3 (4.0-10.0)
[2022-03-17 18:54] LABS: INR 1.07 (0.83-1.09); PROTHROMBIN TIME (PATIENT) 12.3 SEC (9.7-13.0)
[2022-03-17 19:01] LABS: CALCIUM 9.3 mg/dL (8.5-10.1)
[2022-03-17 19:02] LABS: ALBUMIN 4.1 g/dl (3.4-5.0)
[2022-03-17 19:05] LABS: CREATININE 0.9 mg/dL (0.55-1.3); TOT PROT 7.6 g/dl (6.4-8.2)
[2022-03-17 19:06] LABS: BILIRUBIN,TOTAL 0.4 mg/dL (0.2-1)
[2022-03-17 20:54] LABS: PH,URINE 5.5 (5.0-8.0); URINE APPEARANCE TURBID; URINE BILIRUBIN NEGATIVE (NEGATIVE); URINE COLOR YELLOW; URINE GLUCOSE (UA) NEGATIVE (NEGATIVE); URINE KETONE TRACE (NEGATIVE); URINE LEUK ESTERASE NEGATIVE (NEGATIVE); URINE NITRITE NEGATIVE (NEGATIVE); URINE PROTEIN NEGATIVE (NEGATIVE); URINE UROBILINOGEN 0.2 mg/dL (0.2-1.0)
[2022-03-17 22:50] VITALS: BP 120/76; RESP 18
== END 2022-03-17 22:50 | disposition home or self-care (01) ==
LOC: JER 17:00
PROC: 3E033NZ Introduction of Analgesics, Hypnotics, Sedatives into Peripheral Vein, Percutaneous Approach (ICD-10-PCS; principal; 2022-03-17)
PROC: 3E0333Z Introduction of Anti-inflammatory into Peripheral Vein, Percutaneous Approach (ICD-10-PCS; 2022-03-17)
DX: R10.31 Right lower quadrant pain (principal)
CPT/HCPCS: 0241U-QW; 36415; 74177-TC; 80053; 81003; 83690; 85025; 85610; 87086; 99285-25; Q9967